=== PATIENT | male | born 1990 | race Caucasian/White ===

== ENCOUNTER → 2017-01-27 | Outpatient (CLI) | payer OTHER ==
--- NOTE | 2017-01-28 06:30 | PAP/PSG TECHNICIAN REPORT ---
[facility] Plant Anatomy Teacher Polysomnogram Report Study name: None Report date: 01/28/2017 Study date: 01/27/2017 Referring Physician: DR. WAKEFIELD Name: ISIS BAXTER Interpreting Physician: Jabier Wakefield M.D. Date of : 1990 Plant Anatomy Teacher: MIKO Valderrama. Sex: Male Age: 26 StudyType: PSG Weight: 152 lbs 16 inches Height: 26 years, Height 5' 9" Neck Circum: BMI: 22.44 Medications: LISINOPRIL 2.5 MG Patient History PATIENT HAS HISTORY OF RESTLESS LEGS AND MOVEMENTS WHILE SLEEPING. HE USUALLY FEELS TIRED DURING THE DAY AND DOESN'T GO TO BED UNTIL AFTER MIDNIGHT. ALSO HAS HISTORY OF SNORING. HE IS HERE TODAY FOR AN EVALUATION FO OSMAN. ESS = 5 RM 7 Parameters Monitored NPSG: E1-M2, E2-M1, Fp1-M2, Fp2-M1, F3-M2, F4-M2, F4-M1, C3-M2, C4-M2, C4-M1, O1-M2, O2-M2, O2-M1, T3-M2, T4-M1, P3-M2, P4-M1, CHIN1, CHIN2, HR, EKG, Legs, PFLOW, SNOR, FLOW, CFLOW, Tidal Volume, THOR, ABDO, SpO2, PLTH, CPRESS, ETCO2 Wave, ETCO2, pH Sleep Architecture Sleep Stages Time at Lights Off 10:38:28 PM STAGES Time (min.) TST (%) Time at Lights On 6:10:58 AM Wake 190.0 -- Total Recording Time (TRT) 453.00 min. N1 21.5 8 Total Sleep Period (TSP) 283.0 min. N2 183.0 70 Total Sleep Time (TST) 262.5min. N3 23.5 9 Awake Time 190.0 min. REM 34.5 13 Wake after Sleep Onset 20.5 min. Sleep Efficiency (SE) 58 % Sleep Onset Latency (ANTONI) 169.5 min. Number of Stage 1 Shifts None Awakenings 22 Stage Changes 79 Number of REM periods 3 REM 34.5 13 REM Latency 89.0 min. NREM 228.0 87 Body Position Analysis Supine Right Left Side Prone Vertical Total Sleep Time (min.) 283.3 103.0 59.3 162.24 0.0 0.0 Total Sleep Time (%) 38% 39% 23% 62 0% N/A% Total Sleep Time REM (min.) 0.0 28.0 6.5 None 0.0 0.0 Total Sleep Time NREM (min.) 100.3 75.0 52.8 None 0.0 0.0 Intermittent Wake (min.) 183.0 4.0 3.0 None 0.0 0.0 Total Sleep Period (%) 40% None None None None None Arousals Myoclonus (PLM) * Events Count Index Events Count Index Spontaneous 53 12 Events Awake (PLMW) 241 76.1 Respiratory 19 4.3 Events Asleep w/ Arousal (PLMA) 15 3.4 PLM 15 3 Events Asleep w/o Arousal (PLMS) 173 39.5 Snoring 5 1 Total Asleep 188 43.0 Total 92 21 Total 429 57 Respiratory Analysis * CA OA MA CH H RERA Total Count 0 2 0 0 16 14 18 Index 0.0 0.5 0.0 0 3.7 3 7.3 Mean Duration 0.0 16.5 0.0 0.00 18.4 17.4 17.8 Longest Duration 0.0 19.5 0.0 0.00 0.0 19.7 23.1 Respiratory Event Summary Total Supine ~Supine Right Left Prone REM NREM Apneas Count 2 2 0 0 0 N/A 0 2 Index 0.5 1 0 0.0 0.0 N/A 0 1 Hypopneas (4% Desat) Count 16 14 2 2 0 N/A 2 14 Index 3.7 8.4 1 1.2 0.0 N/A 3.5 3.7 Apneas & All Hypopneas Count 18 16 2 2 0 N/A 2 16 Index 4.1 10 1 1 0 N/A 3.5 4.2 Respiratory Events (Colon Therapist+All Hyp+RERA) Count 18 29 3 3 0 N/A 2 16 Index 7.3 17 1 1.7 0.0 N/A 5.2 7.6 Respiratory Related Arousal Count 19 29 1 1 0 N/A 1 18 Index 4.3 11 0 1 0 N/A 2 5 Snoring Analysis Supine Right Left Prone REM NREM Total Snore duration 4.5 min Snores count 89 30 14 N/A 6 127 133 Snore mean duration 2.0 Sec Snores index 53 17 14 N/A 10.4 33.4 30.4 TST with snoring (%) 1.7% Desaturation Event Summary: Minimum %SpO2 Event Count Mean/Min/Max Duration(sec.) Desaturation Index % Time In Bed > 90 22 28.7 / 10.8 / 60.0 5.2 57.3 86 - 90 12 21.8 / 10.8 / 37.3 3.8 42.7 81 - 85 0 N/A 0.0 0.0 76 - 80 0 N/A 0.0 0.0 71 - 75 0 N/A 0.0 0.0 66 - 70 0 N/A 0.0 0.0 61 - 65 0 N/A 0.0 0.0 56 - 60 0 N/A 0.0 0.0 51 - 55 0 N/A 0.0 0.0 < 50 0 N/A 0.0 0.0 Total REM NREM Awake <50% 0.0 min. 0.0 min. 0.0 min. 0.0 min. 51 - 60% 0.0 min. 0.0 min. 0.0 min. 0.0 min. 61 - 70% 0.0 min. 0.0 min. 0.0 min. 0.0 min. 71 - 80% 0.2 min. 0.0 min. 0.0 min. 0.2 min. 81 - 90% 187.6 min. 26.1 min. 147.3 min. 14.2 min. 91 - 100% 251.6 min. 8.5 min. 79.8 min. 163.3 min. Average 91 90 90 92 Minimum SpO2 77 87 86 77 Desaturation Event Index 2.9 3.5 4.2 1.6 # Desat. Events below 89% 15 2 12 1 Time(%) with Saturation below 89% 6.5 1.0 5.2 0.3 Time(min.) with Saturation below 89% 28.7 4.5 23.1 1.2 Time (mins) REM (mins) NREM (mins) % of TST SpO2 Below 90% 18 2 N16 31.8 SpO2 Below 88% 6 0 0 1 Heart Rate Analysis Min (bpm) Max (bpm) Average (bpm) Awake 35 281 61 NREM 46 300 56 REM 52 80 64 Overall 46 300 57 Supplemental O2 Values Minimum O2 level: None Value Start Time End Time Plant Anatomy Teacher Comments Mr. Lu slept in the right, left adn supine positions. PAC's noted. Leg movements noted. No bruxism noted. Snoring was noted and scored as a 1 on a scale of 1 through 5. (0=no snoring, 5=snoring loud enough to be heard through a closed door or down the mc way) Mr. Lu awoke to use the restroom 1 time during the night. Mr. Lu stated I did not sleep as well as I do when I am in my own bed. The final report will be interpreted and signed by a sleep physician. The completed physician report will then be placed in the patient medical record. Therapy (cm H2O) 0 TIB (min.) 452.5 TST (min.) 262.5 Sleep Onset (min.) 169.5 REM Onset From Sleep (min.) 89.0 Sleep Efficiency % 58 Wakefulness (%) 42 Wakefulness (min.) 190.0 NREM 1 (%) 8 NREM 1 (min.) 21.5 NREM 2 (%) 70 NREM 2 (min.) 183.0 NREM 3 (%) 9 NREM 3 (min.) 23.5 REM (%) 13 REM (min.) 34.5 # Arousals 92 Arousal Index 21 # Snore 133 Snore Index 30.4 AHI 4.1 AHI Supine 10 AHI Non-Supine 1 NREM AHI 4.2 REM AHI 3.5 RDI 7.3 # Obstructive Apnea 2 # Central Apnea 0 # Mixed Apnea 0 # Hypopneas 16 RERAs 14 Total Respiratory Events 33 Time Below SpO2 89% (min.) 27.5 Mean NREM SpO2 (%) 90 Mean REM SpO2 (%) 90 Mean Sleep SpO2 (%) 90 Min NREM SpO2 (%) 86 Min REM SpO2 (%) 87 Position Supine (min.) 283.3 Position Non-supine (min.) 162.2 LM Index Sleep 43.0 LM Index NREM 44.5 LM Index REM 33.0 Mean Heart Rate (bpm) 57 Min Heart Rate (bpm) 46
--- NOTE | 2017-01-30 17:16 | POLYSOMNOGRAPH REPORT ---
CLINICAL DATA: A 26-year-old male with BMI of 22.44 referred by myself and Dr. Cavazos for possible leg movement disorder at night disrupting sleep. He also has snoring. SLEEP ARCHITECTURE: Total sleep period was 283 minutes. Total sleep time was 262.5 minutes divided between 228 minutes of non-REM sleep and 34.5 minutes of REM sleep. Sleep onset latency was markedly delayed at 169.5 minutes. REM latency was 89 minutes. Sleep efficiency was reduced at 58%. Awake after sleep onset was 20.5 minutes. Sleep consisted of stage N1 8%, N2 70%, N3 9%, REM 13%. AROUSAL DATA: 92 arousals were recorded for an index of 21 per hour. 19 were due to respiratory events, 15 were due to PLMs events. PERIODIC LIMB MOVEMENTS DATA: Severe PLMD was noted during sleep. The total limb event count was 188 for an index of 43 with arousal index of 3.4 per hour. RESPIRATORY DATA: Mild/borderline sleep apnea/hypopnea was noted. The AHI was 4.1. The RDI was 7.3. There were 2 obstructive apneic episodes, the longest duration of which was 19.5 seconds. There were 16 hypopneic episodes with a mean duration of which was 18.4 seconds. There were 14 RERAs. The longest RERA was 19.7 seconds. OXIMETRY DATA: Very mild nocturnal hypoxemia was seen. Oxygen bobby was 86%. Mean saturation was 91%. Time below 88% was 6 minutes. ELECTROCARDIOGRAM: Heart rates ranged from 46-80 beats per minute. PVCs were noted. EDGE FINISHER'S COMMENTS: The patient slept in the right, left, and supine positions. Frequent leg movements were noted through the night. Snoring was very mild, rated 1 on a scale of 1 through 5. IMPRESSION: Very mild/borderline sleep apnea/hypopnea with an apnea-hypopnea index of 4.1 and a respiratory disturbance index of 7.3 with significant periodic limb movement disorder with a periodic limb movement index of 43 per hour. RECOMMENDATIONS: The patient will be seen back in the sleep clinic for reevaluation and further recommendations. [place]
== END | disposition home or self-care (01) ==
LOC: C.NEUR 20:00
PROVIDERS: ATTEND Internal Medicine Pulmonary Disease
DX: R53.83 Other fatigue (principal); G47.61 Periodic limb movement disorder; R06.83 Snoring

== ENCOUNTER → 2017-05-15 | Outpatient (CLI) | payer OTHER ==
[~2017-05-15] VITALS: Ht 175.3 cm; Wt 69.2 kg
[2017-05-15 15:16] VITALS: BP 116/72; PULSE 76; Ht 175.3 cm; Wt 69.2 kg
== END | disposition home or self-care (01) ==
LOC: C.NEUR 15:03
PROVIDERS: ATTEND Internal Medicine Pulmonary Disease
DX: G47.61 Periodic limb movement disorder (principal); R06.83 Snoring